=== PATIENT | female | born 1965 | race Caucasian/White ===

== ENCOUNTER → 2021-02-12 | Day surgery (SDC) | payer OTHER ==
[~2021-02-12] MED LIST: ADULT LOW DOSE81 MG PO; ALIVE WOMEN'S1 EAC3 PO; BENADRYL25 MG PO; BENTYL 10 MG CA10 MG PO; ESTRADIOL 1 MG T1 M1 PO; LISINOPRIL-HCT1 EAC1 PO; NORCO5 PO; PRILOSEC OTC20 MG PO; PROBIOTIC1 EAC7 PO; TROKENDI XR25 MG PO; VITAMIN C100 MG; ZYRTEC10 M5 PO
[2021-02-12 08:31] LABS: CALCIUM 8.7 mg/dL (8.5-10.1); CREATININE 1.4 mg/dL (0.6-1.3); POTASSIUM 3.8 mmol/L (3.5-5.1)
[2021-02-12 08:36] LABS: ALBUMIN 3.4 g/dL (3.4-5.0); TOTAL BILIRUBIN 0.2 mg/dL (<0.1-1.0); TOTAL PROTEIN 7.4 g/dL (6.4-8.2)
--- NOTE | 2021-02-12 11:16 | EKG ---
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
--- NOTE | 2021-02-14 10:45 | OP ---
[facility] [address] [place] [address] OPERATIVE REPORT Name: MARYCRUZ WALKER Room: [facility].#: [id number] Admission: 02/12/21 Attend Phys: Cody Anglin Discharge: Date of : 69 Report #: [id number] THIS REPORT FOR: cc: Gillian Aguero MD, Ghazal A. MD Patterson, Jonathan D. MD ~ DOC #: [id number] Cody Anglin MD DATE OF SURGERY: 02/12/2021 PREOPERATIVE DIAGNOSIS: Symptomatic cholelithiasis. POSTOPERATIVE DIAGNOSIS: Symptomatic cholelithiasis. OPERATION: Laparoscopic cholecystectomy. SURGEON: Cody Anglin MD. ANESTHESIA: General. ESTIMATED BLOOD LOSS: Minimal. SPECIMENS: Gallbladder. DESCRIPTION OF PROCEDURE: After informed consent was obtained, the patient was brought to the operating room and placed supine. SCDs were placed and working, preoperative antibiotics were administered, general anesthesia was induced. The abdomen was prepped and draped in the usual sterile fashion. A 10 mm incision was made above the umbilicus. Fascia was incised and a trocar was placed. Pneumoperitoneum was established. Three right upper quadrant 5 mm ports were placed. Gallbladder was grasped at the fundus and retracted cephalad. Infundibulum was grasped and retracted laterally. I dissected out the cystic duct and cystic artery. Cystic duct and artery were identified as well as the cystic plate. Cystic duct and artery were clipped and ligated, leaving 2 clips on the remaining duct and 1 on the remaining artery. Gallbladder was then taken off the liver bed with electrocautery. It was placed into an Endopouch and removed. The fascia was then closed with a [id number]-[id number]-ahogm 0 Vicryl. Skin was closed with 4-0 Monocryl. Incisions were dressed with Steri-Strips. COMPLICATIONS: None. DISPOSITION: The patient was taken to recovery in satisfactory condition. MD NERY Sebastian/[place] [address] OPERATIVE REPORT Name: MARYCRUZ WALKER Room: [facility]#: [id number] Admission: 02/12/21 Attend Phys: Cody Anglin Discharge: Date of : 69 Report #: [id number] <ELECTRONICALLY SIGNED> By: Cody Anglin MD 02/14/21 1045 [id number] [id number] Anglin MD /nt
--- NOTE | 2021-02-16 16:10 | PATH ---
[address] [address] PATHOLOGY RPT PROCEDURE Name: MARYCRUZ WALKER Room: [facility].#: [id number] Admission: 02/12/21 Date of : 69 Discharge: Report #: [id number] Path Case #: [id number] [facility] Accession Number: [id number] . 01 Material submitted: . gallbladder - GALLBLADDER . 01 Clinical history: . LAPAROSCOPIC CHOLECYSTECTOMY CALCULUS OF GALLBLADDER . 02 Diagnosis: Gallbladder: - Chronic cholecystitis, cholesterolosis, and cholelithiasis. ([facility]; 02/16/2021) [facility] 02/16/2021 [facility]2 Local . 02 Electronically signed: . Compa Steele MD, Pathologist NPI- [id number] . 01 Gross description: . Fixative: Formalin Labeled: Gallbladder Specimen received: Intact gallbladder Dimensions: 7.6 x 3.1 x 3.0 cm Serosa: Escobar-sauceda Lymph node: Not identified Mucosa: Velvety, bile-stained Average wall thickness: 0.1 cm Calculi: Present displaying a bright yellow and nodular appearance Abnormalities: None identified . Benefits Administrator body, fundus, and the cystic duct margin in cassette A1. ([facility]; 02/14/2021) [facility] 02/14/2021 1247 Local . 02 Pathologist provided ICD-10: K80.10 . 02 CPT . 773953 Specimen Comment: A courtesy copy of this report has been sent to [phone] Specimen Comment: [phone] Specimen Comment: Report sent to / DR HARTMAN Performed at: [address] [address] PATHOLOGY RPT PROCEDURE Name: MARYCRUZ WALKER Room: [facility]#: [id number] Admission: 02/12/21 Date of : 69 Discharge: Report #: [id number] Path Case #: [id number] [address] [id number] MD Owen Evans MD Phone: [phone] Performed at: [address] [place], [place] [id number] MD Compa Steele MD Phone: [phone]
== END | disposition home or self-care (01) ==
LOC: M.SUR 06:07
PROVIDERS: ATTEND Surgery
DX: K80.10 Calculus of gallbladder with chronic cholecystitis without obstruction (principal); R10.11 Right upper quadrant pain; I10 Essential (primary) hypertension; M19.90 Unspecified osteoarthritis, unspecified site; Z98.890 Other specified postprocedural states; Z79.899 Other long term (current) drug therapy; Z88.0 Allergy status to penicillin; Z88.2 Allergy status to sulfonamides; Z79.82 Long term (current) use of aspirin